=== PATIENT | male | born 1955 | race Caucasian/White ===

== ENCOUNTER 2025-01-27 01:52 | Day surgery (SDC) | payer MEDICARE, SELFPAY ==
[2025-01-25 12:12] VITALS: BMI 28.0
--- OUTSIDE RECORDS SUMMARY | 2025-01-27 01:55 | XMS_ITS | Encounter Summary ---
Author Organization [facility] Healthcare Address [address] [place] [address] Care Team Providers Care Impregnator And Drier Helper Name Role Phone Rico Murray DO Primary Care Provider [phone] Lorenzo Corley MD Unavailable [phone] Encounter Details Date Type Department Care Team (Late st Contact Info) Description 11/28/[address] 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 Gender Identity Not on file Sexual Orientation Straight 03/16/2019 2: 18 PM ELECTRON BEAM OPERATOR documented as of this encounter Functional Status * Question Answer Date of Assessment Author BP Location Right arm 11/29/2019 9:09 AM CDT Nhung Cox RN * [place] Fall Risk Question Answer Date of Assessment Author History of Falling 0 11/29/2019 9:05 AM CDT Nhung Cox RN Secondary Diagnosis 15 11/29/2019 9:05 AM CD T Nhung Cox, cake former Aids 0 11/29/2019 9:05 AM CDT Nhung Cordero RN Intravenous Therapy/Heparin/ Saline Lock 0 11/29/2019 9:05 AM CDT Nhung Cox R N Gait/Transferring 0 11/29/2019 9:05 AM CDT Nhung Cox, RN Mental Status 0 11/29/2019 9:05 AM CDT Nhung Medrano RN Franklin Fall Risk Score (Score >= 45 places fall precaution order) 15 11/29/2019 9:05 AM CDT Nhung Cox, YOSSI * Question Answer Date of Assessment Author BP Location Right arm 11/29/2019 9:09 AM ROMEROT Nhung Cox RN * Assistive Devices Question Answer Date of Assessment Author Assistive Devices/DME Eyeglasses 11/29/2019 9:00 AM CDT Nhung Cox RN documented as of this encounter Plan of Treatment Not on file documented as of this encounter Visit Diagnoses Not on filedocumented in this encounter Care Teams Impregnator And Drier Helper Relationship Specialty Start Date End Date Rico Murray DO PCP - General Internal Medicine 10/20/18 Lorenzo Corley MD Consulting Physician Cardiology 06/10/24 documented as of this encounter
--- OUTSIDE RECORDS SUMMARY | 2025-01-27 01:55 | XMS_ITS | Clinical Summary ---
Author Organization [facility] Address [address] [place] [address] Care Team Providers Care Acid Remover Name Role Phone Unavailable Primary Care Provider Unavailabl e Social History Tobacco Use Types Packs/Day Years Used Date Smoking Tobacco: Never Assessed Sex and Gender Information Value Date Recorded Sex Assigned at Not on file Legal Sex Male 9:42 PM CDT Gender Identity Not on file Sexual Orientation Not on file Last Filed Vital Signs Vital Sign Reading Time Taken Comments Blood Pressure 152/94 06/02/2012 6:06 PM CDT Pulse 58 06/02/2012 6:06 PM CDT Temperature - - Respiratory Rate - - Oxygen Saturation - - Inhaled Oxygen Concentration - - Weight 81.2 kg (179 lb) 06/02/2012 6:06 PM CDT Height - - Body Mass Index - - Plan of Treatment Health Maintenance Due Date Last Done Comments Colorectal Cancer Screening Colonoscopy (10 Years) 1957 Hepatitis C 1975 DTaP, Tdap and Td Vaccines ( 1 - Tdap) 02/13/1976 Pneumococcal Vaccine: 50+ Ye ars (1 of 1 - PCV) 2007 Zoster Vaccines (1 of 2) 2007 COVID-19 Vaccine ( - 2024-2 6 season) 2024 Influenza Adult (#1) 2024 RSV Immunization or 60+ Years (1 - 1-dose 75+ series) 02/13/2032 Hepatitis A Vaccines Aged Out No long er eligible based on patient's age to complete this topic Meningococcal B Vaccine Aged Out No l onger eligible based on patient's age to complete this topic Meningococcal Vaccine Aged Out No vibha audrey eligible based on patient's age to complete this topic RSV Immunizations Under 20 Months Aged Out No longer eligible based on patient's age to complete this topic
--- OUTSIDE RECORDS SUMMARY | 2025-01-27 01:55 | XMS_ITS | Clinical Summary ---
Author Organization [facility] Address [facility] [place] [address] Care Team Providers Care Revenue Inspector Name Role Phone Rico Murray DO Primary Care Provider [phone] Lorenzo Corley MD Unavailable [phone] Allergies No known active allergies Medications vitamin B complex capsuleIndicati ons:Vitamin Deficiency Prevention Take 1 capsule by mouth music education director before breakfast Active cholecalciferol , vitamin D3, (VITAMIN D3 ORAL)Indication s:otc Take 1 tablet by mouth music education director before breakfast Active amLODIPine (NORVASC) 10 mg tablet Take 1 tablet (10 mg total) by mouth daily Active Active Problems Problem Noted Date Diagnosed Date Pacemaker 07/11/2024 Assessment & Plan (01/16/2025 9:50 AM MEAT PACKAGER): Normal functioning leadless pacemaker V paced 39%. Continue quarterly remote checks. Assessment & Plan (07/11/2024 11:06 AM CDT): Followed by Dr. Ladd. Primary hypertension 01/05/2024 Assessment & Plan (01/16/2025 9:51 AM MEAT PACKAGER): BP at home is acceptable. Continue amlodipine. Assessment & Plan (07/11/2024 11:05 AM CDT): Controlled. Continue amlodipine. Assessment & Plan (01/05/2024 9:46 AM MEAT PACKAGER): Blood pressure is improving now 2 weeks on amlodipine. Continue to monitor. RBBB 03/04/2022 Assessment & Plan (07/11/2024 11:06 AM CDT): Stable Assessment & Plan (01/05/2024 9:45 AM MEAT PACKAGER): Stable. Assessment & Plan (06/23/2023 10:26 AM CDT): Stable. Assessment & Plan (12/16/2022 9:17 AM CDT): Stable monitor Assessment & Plan (07/01/2022 12:27 PM CDT): Stable. Sleep apnea 03/04/2022 Assessment & Plan (01/16/2025 9:51 AM MEAT PACKAGER): Continue CPAP. Assessment & Plan (12/16/2022 9:19 AM CDT): Much improved with current BiPAP therapy. No changes recommended. Assessment & Plan (03/04/2022 3:21 PM MEAT PACKAGER): Schedule the patient for a sleep study in the [facility]. Second degree AV block, Mobitz type I 03/04/2022 Assessment & Plan (01/16/2025 9:50 AM MEAT PACKAGER): Status post pacemaker, stable. Assessment & Plan (07/11/2024 11:06 AM CDT): AV block advanced to completing now has a leadless pacemaker Assessment & Plan (01/05/2024 9:45 AM MEAT PACKAGER): Stable and asymptomatic. Assessment & Plan (06/23/2023 10:27 AM CDT): No signs or symptoms of advanced heart block. No syncope. Continue to observe. Assessment & Plan (12/16/2022 9:18 AM CDT): The patient has had no syncope. Continue observe for symptoms and follow-up with Dr. Ladd. Assessment & Plan (07/01/2022 12:27 PM CDT): Check Holter and follow up with sleep study Assessment & Plan (03/04/2022 3:21 PM MEAT PACKAGER): 48 hour Holter monitor will be placed today with recommendations pending the results. Bradycardia 10/09/2020 Assessment & Plan (10/09/2020 12:24 PM CDT): The patient's ECG has second-degree AV block Mobitz type 1. This is most likely due to his high vagal tone from cycling. We will check a 1 week Zio patch continuous monitor as well as an echocardiogram. Carpal tunnel syndrome of right wrist 02/03/2020 Overview (02/03/2020): Added automatically from request for surgery [id number] Carpal tunnel syndrome, left 12/30/2019 Overview (12/30/2019): Added automatically from request for surgery [id number] Spinal stenosis of lumbar region 04/06/2019 Overview (04/06/2019): Added automatically from request for surgery [id number] Low back pain, non-specific 02/07/2019 Encounters Date Type Department Care Team Description 01/16/2025 9:15 AM MEAT PACKAGER Office Visit [facility] [address] [place] [id number] Lorenzo Corley MD Second degree AV block, Mobitz type I (Primary Dx); Primary hypertension; Pacemaker; Sleep apnea, unspecified type from Last 3 Months Surgical History Surgery Date Site/Laterality Comments LUMBAR SPINE SURGERY 12/08/2019 L4/5 POSTERIOR SPINAL DECOMPRESSION, RIGHT L4/5 TRANSFORAMINAL LUMBAR INTERBODY FUSION INSTRUMENTATION-ROBOTIC ASSISTED - GLOBUS KNEE ARTHROSCOPY 1990s Right CARPAL TUNNEL RELEASE 01/03/2020 Left Medical History Medical History Date Comments Sleep apnea 03/04/2022 BI-PAP Family History Medical History Relation Name Comments Cancer Father Diabetes Father Heart attack Father Heart disease Mother Anesthesia problems Neg Hx Relation Name Status Comments Father Mother Social History Tobacco Use Types Packs/Day Years Used Date Smoking Tobacco: Never Smokeless Tobacco: Never Tobacco Cessation:Counseling Given: Not Answered Alcohol Use Standard Drinks/Week Comments Yes 0 (1 standard drink = 0.6 oz pur e alcohol) occassional 1 per month AUDIT-C Answer Date Recorded Q1: How often do you have a drink containing alc ohol? Never 11/26/2020 Average Number of Drinks Not on file 021 Frequency of Binge Drinking Not on file 05/2020 PHQ-2 Answer Date Recorded PHQ-2 Total Score (If total score is 3 or more points, staff should administer the PHQ-9) 0 12/08/2019 Sex and Gender Information Value Date Recorded Sex Assigned at Not on file Legal Sex Male 5:47 PM MEAT PACKAGER Gender Identity Not on file Sexual Orientation Straight 03/16/2019 2: 18 PM MEAT PACKAGER Last Filed Vital Signs Vital Sign Reading Time Taken Comments Blood Pressure 147/81 01/16/2025 9:23 AM MEAT PACKAGER Pulse 54 01/16/2025 9:23 AM MEAT PACKAGER Temperature 36.4 C (97.5 F) 02/20/2020 10:00 AM MEAT PACKAGER Respiratory Rate 16 01/16/2025 9:23 AM MEAT PACKAGER Oxygen Saturation 99% 01/16/2025 9:23 AM MEAT PACKAGER Inhaled Oxygen Concentration - - Weight 86.2 kg (190 lb) 01/16/2025 9:23 AM MEAT PACKAGER Height 175.3 cm (5' 9) 01/05/2024 9:18 AM MEAT PACKAGER Body Mass Index 28.06 01/05/2024 9:18 AM MEAT PACKAGER Plan of Treatment Health Maintenance Due Date Last Done Comments Colon Cancer Screening-Colonoscopy 1955 Hepatitis C Screening 1957 Prostate Cancer Screening-PSA 1957 DTaP/Tdap/Td Vaccine (1 - Tdap) 02/13/1968 Hepatitis B Screening 1975 Pneumococcal vaccine 65+ (1 of 1 - PCV) 2007 Zoster Vaccine (1 of 2) 2007 Depression Screening 04/06/2020 04/06/2019, 04/06/19 Fall Risk Assessment 02/19/2021 02/20/2020 Well Visit 65+ 2022 Influenza Vaccine (#1) 2024 Medical Devices Implanted Type Area Tailor Women'S Garment Alteration Device Identifier Shelf Expiration Date Model / Serial / Lot [facility] [id number] Actifuse Abx Resorbable; Scaffold; Osteostimulativ e; Granule 1-2 - [id number] - [id number] Implanted:Qty: 1 on 12/08/2019 by Benito Estes MD at [facility] Right: Spine Lumbar [facility] 11/22/2020 [id number] / [id number] / [employer] [id number] Tissue Bone Void Filler Acupac Plus 25cc - [id number] - [id number] Implanted:Qty: 1 on 12/08/2019 by Benito Estes MD at [facility] N/A: Spine Lumbar [employer] 05/02/2024 [id number] / [id number] / [employer] 1134.001 Creo Spinal Cap Locking Nonsterile Mis - [id number] Implanted:Qty: 4 on 12/08/2019 by Benito Estes MD at [facility] Right: Spine Lumbar [employer] 1134.0010 / / [employer] 1134.01 Creo Mis 30mm Modular Polyaxial Tulip Head Screw Bone - [id number] Implanted:Qty: 4 on 12/08/2019 by Benito Estes MD at [facility] N/A: Spine Lumbar [employer] 1134.01 / / [employer] 1067.4755 Creo Amp 7.5mm 55mm Cannulated Modular Spine Screw Bone - [id number] Implanted:Qty: 1 on 12/08/2019 by Benito Estes MD at [facility] Right: Spine Lumbar [employer] 1067.4755 / / [employer] 1067.4750 Creo 7.5mm 50mm Cannulated Modular Spine Screw Bone - [id number] Implanted:Qty: 3 on 12/08/2019 by Benito Estes MD at [facility] Right: Spine Lumbar [employer] 1067.4750 / / [employer] 1134.705 Creo Mis Od5.5 Mm L50 Mm Curve Kadeem Spinal Titanium - [id number] Implanted:Qty: 1 on 12/08/2019 by Benito Estes MD at [facility] Right: Spine Lumbar [employer] 1134.705 / / [employer] 1134.7055 Creo Mis 5.5mm 55mm Curve Kadeem Spinal Titanium - [id number] Implanted:Qty: 1 on 12/08/2019 by Benito Estes MD at [facility] Right: Spine Lumbar [employer] 1134.7055 / / [employer] 1124.1133 Altera [id number] 15d Spacer Spinal - [id number] Implanted:Qty: 1 on 12/08/2019 by Benito Estes MD at [facility] Right: Spine Lumbar [employer] 1124.1133 / / Insurance [facility] HandpressionsRA [facility] HandpressionsRA AETNA [facility] ADVANTRA Advance Directives For more information, please contact: [phone] * Full Code (Latest Code Status on File) Date Activated Date Inactivated Comments 12/08/2019 8:21 PM 12/10/2019 7:20 PM Care Teams Revenue Inspector Relationship Specialty Start Date End Date Rico Murray DO PCP - General Internal Medicine 10/20/18 Lorenzo Corley MD Consulting Physician Cardiology 06/10/24
--- OUTSIDE RECORDS SUMMARY | 2025-01-27 01:55 | XMS_ITS | Encounter Summary ---
Author Organization [facility] Healthcare Address [address] [place] [address] Care Team Providers Care Tree And Shrub Technician Name Role Phone Rico Murray DO Primary Care Provider [phone] Lorenzo Corley MD Unavailable [phone] Encounter Details Date Type Department Care Team (Late st Contact Info) Description 11/14/2019 Telephone [facility] ([facility]) [address] [place] [address] Ortega Fajardo, RT Social History Tobacco Use Types Packs/Day Years Used Date Smoking Tobacco: Never Smokeless Tobacco: Never Sex and Gender Information Value Date Recorded Sex Assigned at Not on file Legal Sex Male 5:47 PM DOLPHIN TRAINER Gender Identity Not on file Sexual Orientation Straight 03/16/2019 2: 18 PM DOLPHIN TRAINER documented as of this encounter Plan of Treatment Not on file documented as of this encounter Visit Diagnoses Not on filedocumented in this encounter Care Teams Tree And Shrub Technician Relationship Specialty Start Date End Date Rico Murray DO PCP - General Internal Medicine 10/20/18 Lorenzo Corley MD Consulting Physician Cardiology 06/10/24 documented as of this encounter
--- OUTSIDE RECORDS SUMMARY | 2025-01-27 01:55 | XMS_ITS | Encounter Summary ---
Author Organization [facility] Address [address] [place] [address] Care Team Providers Care Production Shift Supervisor Name Role Phone Isajj Rico Francisco Primary Care Provider Encounter Details Date Type Department Care Team (Latest Contact Info) Description 01/10/2025 Results Follow-Up [facility] Heart and Vascular Electrophysiology - [address] [facility] [address] [address] [facility] [address] [place] [address] [place] [address] [facility] [address] [place] [address] PACER ANALYSIS REMOTE, UP TO 90 DAYS Social History Tobacco Use Types Packs/Day Years Used Date Smoking Tobacco: Never Alcohol Use Standard Drinks/Week Comments Never 0 (1 standard drink = 0.6 oz pur e alcohol) Feeling Safe Answer Date Recorded Are you in a relationship wi th someone who hurts you emotionally and/or physically? No 03/02/2024 Food Insecurity Answer Date Recorded Patient needs follow up regardin 06/27/2024 Transportation Needs Answer Date Record ed Patient needs follow up regardin 06/27/2024 Housing Stability Answer Date Recorded Social/Environmental Concerns No concerns Utility Needs Answer Date Recorded Patient needs follow up regardin 06/27/2024 Sex and Gender Information Value Date Recorded Sex Assigned at Not on file Legal Sex Male 12:12 PM CDT Gender Identity Not on file Sexual Orientation Not on file documented as of this encounter Miscellaneous Notes * Result Encounter Note - Liam Ladd MD - 01/10/2025 6:19 AM VOLUNTEER PATIENT REPRESENTATIVE Reviewed and agree with documentation. NTEER PATIENT REPRESENTATIVE documented in this encounter Plan of Treatment Upcoming Encounters Date Type Department Care Team (Late st Contact Info) Description 03/29/2025 2:30 PM VOLUNTEER PATIENT REPRESENTATIVE Procedure visit [facility] Heart and Vascular Electrophysiology - [address] [facility] [address] [address] [facility] [address] [place] [address] 01/01/2026 9:00 AM VOLUNTEER PATIENT REPRESENTATIVE Office Visit [facility] Heart and Vascular Electrophysiology - [address] [facility] [address] [address] [facility] [address] [place] [address] [place] [address] [facility] [address] [place] [address] documented as of this encounter Visit Diagnoses Not on filedocumented in this encounter Care Teams Production Shift Supervisor Relationship Specialty Start Date End Date Rico Murray DO [address] [facility] [address] [place] [id number] PCP - General Internal Medicine 12/17/23 documented as of this encounter
[2025-01-27 08:43] VITALS: BP 153/84; PULSE 68; RESP 20; TEMP 36.2; O2SAT 100
[2025-01-27] MEDS: LACTATED RINGERS 1,000 ML 150 ML IV CONT (08:54)
--- NOTE | 2025-01-27 09:09 | WPDANESEPPF ---
Anes - Initial Pre Proc Eval Procedure: Operation Date: 01/27/25 10:00 Proposed Procedures p Screening Colonoscopy - Barney James MD Date/Time: 01/27/25 09:09 Surgeon: Barney James MD Pre Op Diagnosis: Screening Patient Data Age: 69 Gender: M Height: 1.75 m Weight: 84.4 kg Last Vital Signs Temp 97.2 F L 01/27/25 08:43 Pulse 68 01/27/25 08:43 Resp 20 01/27/25 08:43 BP 153/84 H 01/27/25 08:43 Pulse Ox 100 01/27/25 08:43 O2 Del Method Room Air 01/27/25 08:43 Allergies Allergy/AdvReac Type Severity Reaction Status Date / Time Penicillins Allergy Unknown Rash Verified 01/27/25 08:41 PCN Allergy Mild RASH Uncoded 07/14/24 09:20 Home Medications ?Medication ?Instructions ?Recorded ?Confirmed ?Type amlodipine 10 mg tablet 10 mg PO DAILY 07/14/24 01/27/25 History ropinirole 0.5 mg tablet 0.5 mg PO DAILY PRN restless leg(s) 01/25/25 01/27/25 History Patient hx anesthesia problems: none Family hx anesthesia problems: none Results Review: All pre-operative results and documents have been reviewed as part of the pre-operative evaluation. [facility] Past Medical History Medical History Second degree AV block Pacemaker BAO (obstructive sleep apnea) Hx of cataract Surgical History Surgical History History of cataract surgery History of lumbar spinal fusion 2019 Family History Family History Father , passed from heart attack Heart disease Diabetes mellitus Mother Heart disease Social History Social History Smoking status: Never smoker Alcohol intake: current Substance use type: does not use Lack of Transportation: No Lack of Food: Never True Current Housing: I Have Housing Concerned About Future Housing: No Difficulty Paying Gas/Electric Bills: No Difficulty Paying for Meds: No Currently Unemployed: No Education: Trade/Vocational Certificate Difficulty w/ Childcare or Family Care: No Living arrangements: with friend(s) Spiritual care concerns: No Anes - Eval Final PreProcedure Day of Procedure 01/27/25 09:09 Patient weight: overweight Lungs: normal air movement Airway: Mallampati scale class II Neurological: alert and oriented Last oral intake: >/= 8 hours ASA classification: III Emergent: no Anesthetic plan: proceed Anesthesia type and monitoring: general GIVS and standard monitoring Results Review: All pre-operative results and documents have been reviewed as part of the pre-operative evaluation. HTN, BAO on bipap, leadless pacemaker for hx of AV block. Active without cp or sob. Informed Consent: The patient's anesthetic plan and its attendant risks and benefits were discussed with the patient/family/POA. Questions were solicited and answers provided to the satisfaction of the patient/family/POA.
--- NOTE | 2025-01-27 09:29 | PM.IMHP2 ---
H&P: HPI History of Present Illness Date/Time: 01/27/25 09:29 Chief Complaint: Screening colonoscopy Narrative: This is the patient's 2nd screening colonoscopy. There are no GI symptoms and there is no family history of colorectal cancer. Review of Systems Review of Systems: All systems reviewed & are unremarkable except as noted in HPI and below [facility] Past Medical History Medical History Second degree AV block Pacemaker BAO (obstructive sleep apnea) Hx of cataract Surgical History Surgical History History of cataract surgery History of lumbar spinal fusion 2020 Family History Family History Father , passed from heart attack Heart disease Diabetes mellitus Mother Heart disease Social History Social History Smoking status: Never smoker Alcohol intake: current Substance use type: does not use Lack of Transportation: No Lack of Food: Never True Current Housing: I Have Housing Concerned About Future Housing: No Difficulty Paying Gas/Electric Bills: No Difficulty Paying for Meds: No Currently Unemployed: No Education: Trade/Vocational Certificate Difficulty w/ Childcare or Family Care: No Living arrangements: with friend(s) Spiritual care concerns: No Meds Home Medications and Allergies Home Medications ?Medication ?Instructions ?Recorded ?Confirmed ?Type amlodipine 10 mg tablet 10 mg PO DAILY 07/14/24 01/27/25 History ropinirole 0.5 mg tablet 0.5 mg PO DAILY PRN restless leg(s) 01/25/25 01/27/25 History Allergies Allergy/AdvReac Type Severity Reaction Status Date / Time Penicillins Allergy Unknown Rash Verified 01/27/25 08:41 PCN Allergy Mild RASH Uncoded 07/14/24 09:20 Vital Signs Vital Signs - 24 hr 01/27/25 08:43 Temperature 97.2 F L Pulse Rate 68 Respiratory Rate 20 Blood Pressure 153/84 H Pulse Oximetry 100 Oxygen Delivery Room Air Exam Const: General: cooperative and healthy appearing Resp: Effort & Inspection: normal respiratory effort and able to speak in complete sentences Auscultation: clear to auscultation bilaterally Cardio: Rate: regular rate Rhythm: regular rhythm GI: Inspection: normal to inspection GI Palp: No No hepatosplenomegaly present Auscultation: normal bowel sounds Rectal Exam: deferred Skin: General skin exam: normal color Psych: Appearance: grossly normal Mental Status: mental status grossly normal Assessment and Plan Assessment and plan (1) Screening for colon cancer: Code(s): Z12.11 - Encounter for screening for malignant neoplasm of colon Status: Acute Assessment and Plan: The patient is deemed a good candidate for the procedure. Consent signed. Will proceed. Prior Studies I have reviewed the following patient records and this information was taken into consideration when formulating the assessment and plan.: previous labs, previous ER visits, previous hospitalizations and previous clinic visits
[2025-01-27 09:56] VITALS: BP 105/68; PULSE 51; RESP 20; O2SAT 99
[2025-01-27 10:06] VITALS: BP 105/64; PULSE 54; RESP 18; O2SAT 100
[2025-01-27 10:16] VITALS: BP 111/77; PULSE 60; RESP 22; O2SAT 100
== END 2025-01-27 10:28 | disposition home or self-care (01) ==
PROVIDERS: PCP Internal Medicine; Referring Provider Nurse Practitioner; Visit Provider Internal Medicine Gastroenterology
PROC: 0DJD8ZZ Inspection of Lower Intestinal Tract, Via Natural or Artificial Opening Endoscopic (ICD-10-PCS; CPT 45378; principal; 2025-01-27 10:00)
DX: Z12.11 Encounter for screening for malignant neoplasm of colon (principal); I10 Essential (primary) hypertension; G47.33 Obstructive sleep apnea (adult) (pediatric); I44.1 Atrioventricular block, second degree; Z99.89 Dependence on other enabling machines and devices; Z95.0 Presence of cardiac pacemaker; Z98.890 Other specified postprocedural states; Z98.1 Arthrodesis status; Z82.49 Family history of ischemic heart disease and other diseases of the circulatory system
CPT/HCPCS: G0121; J2003; J2704; J7120